=== PATIENT | male | born 1985 | race Caucasian/White ===

== ENCOUNTER 2016-04-28 15:16 | Emergency (ER) | payer SELFPAY ==
[2016-04-28 15:33] VITALS: BP 134/67; PULSE 80; RESP 16; TEMP 97.9
--- NOTE | 2016-04-28 16:00 | ED ---
ENT HPI - General Chief complaint: Dental/Oral Stated complaint: Dental Time Seen by Provider: 04/28/16 15:34 Source: patient, RN notes reviewed Mode of arrival: ambulatory Limitations: no limitations - History of Present Illness Initial comments: 30-year-old male presents emergency Department chief complaint right lower dental pain. Patient states that was sore yesterday woke up with swelling today. Patient called his dentist who advised him come emergency department to be started on medications. Patient states she's had no fevers no chills no trismus. Denies any sore throat. Patient states he has multiple bad teeth. - Related Data Home Medications Medication Instructions Recorded Confirmed Acetaminophen Tab [Tylenol Tab] 975 mg PO Q6H PRN 04/28/16 04/28/16 Ibuprofen [Motrin] 400 mg PO Q6HR PRN 04/28/16 04/28/16 diphenhydrAMINE HCL [Benadryl] 25 mg PO Q4H PRN 04/28/16 04/28/16 Previous Rx's Medication Instructions Recorded Acetaminophen-Codeine 300-30mg 1 tab PO Q4H PRN #20 tablet 04/28/16 [Tylenol #3] Clindamycin HCl 300 mg PO Q6HR #40 cap 04/28/16 Allergies Allergy/AdvReac Type Severity Reaction Status Date / Time cephalexin monohydrate Allergy Unknown Verified 04/28/16 15:53 [From Keflex] Childhood Penicillins Allergy Unknown Verified 04/28/16 15:53 Childhood Review of Systems ROS Statement: Those systems with pertinent positive or pertinent negative responses have been documented in the HPI. ROS Other: All systems not noted in ROS Statement are negative. 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 OTHER PAST HX INCLUDES: CHRONIC SEVERE RAMON EAR INFECTIONS History of Any Multi-Drug Resistant Organisms: None Reported Past Surgical History: Adenoidectomy, Tonsillectomy Additional Past Surgical History / Comment(s): MULTIPLE TUBES PLACED IN EARS Past Anesthesia/Blood Transfusion Reactions: No Reported Reaction Past Psychological History: No Psychological Hx Reported Smoking Status: Current every day smoker Past Alcohol Use History: Occasional Additional Past Alcohol Use History / Comment(s): STARTED SMOKING AT AGE 15-16- 1PPD, OCCASSIONAL DRINK LESS THAN 14 PER WEEK. Past Drug Use History: None Reported Additional Drug Use History / Comment(s): HAS MEDICAL MARIJUANA CARD BUT DOES' NT SMOKE VERY OFTEN. - Past Family History Father Family Medical History: No Reported History Additional Family Medical History / Comment(s): HEALTHY Mother Family Medical History: No Reported History Additional Family Medical History / Comment(s): HEALTHY General Exam Limitations: no limitations General appearance: alert, in no apparent distress Head exam: Present: atraumatic, normocephalic, normal inspection Eye exam: Present: normal appearance, PERRL, EOMI. Absent: scleral icterus, conjunctival injection, periorbital swelling ENT exam: Present: mucous membranes moist, TM's normal bilaterally. Absent: normal exam, normal oropharynx (Edentulous, no drainable abscess multiple eroded teeth right lower) Neck exam: Present: normal inspection, full ROM. Absent: tenderness, meningismus, lymphadenopathy Respiratory exam: Present: normal lung sounds bilaterally. Absent: respiratory distress, wheezes, rales, rhonchi, stridor Cardiovascular Exam: Present: regular rate, normal rhythm, normal heart sounds. Absent: systolic murmur, diastolic murmur, rubs, gallop, clicks Neurological exam: Present: alert, oriented X3, CN II-XII intact, reflexes normal. Absent: motor sensory deficit Skin exam: Present: warm, dry, intact, normal color. Absent: rash Course Vital Signs 04/28/16 15:29 Temperature 97.9 F Pulse Rate 80 Respiratory 16 Rate Blood Pressure 134/67 O2 Sat by Pulse 100 Oximetry Medical Decision Making - Medical Decision Making 30-year-old male presented for right sided facial pain, dental pain. Patient has a dental infection. Patient was started on clindamycin and follow-up with dentist return parameters discussed. Disposition Clinical Impression: Dental caries, Toothache Disposition: HOME SELF-CARE Condition: Stable Instructions: Dental Abscess (ED) Additional Instructions: Please return to the Emergency Department if symptoms worsen or any other concerns. Prescriptions: Acetaminophen-Codeine 300-30mg [Tylenol #3] 1 tab PO Q4H PRN #20 tablet PRN Reason: pain Clindamycin HCl 300 mg PO Q6HR #40 cap Time of Disposition: 15:59
== END 2016-04-28 16:17 | disposition home or self-care (01) ==
LOC: EC 15:16
DX: K02.9 Dental caries, unspecified (principal); F17.200 Nicotine dependence, unspecified, uncomplicated; Z88.0 Allergy status to penicillin; Z88.1 Allergy status to other antibiotic agents
CPT/HCPCS: 99282

== ENCOUNTER 2017-09-26 23:24 | Emergency (ER) | payer OTHER ==
[2017-09-26 23:29] VITALS: BP 135/93; PULSE 70; RESP 18; TEMP 98.4
[2017-09-26] MEDS ORDERED: CLINDAMYCIN 150 MG CAP PO STA (23:46)
[2017-09-26] MEDS ORDERED: HYDROcodone/APAP 5-325MG 1 EACH TAB PO STA (23:46)
--- NOTE | 2017-09-26 23:50 | ED ---
General Adult HPI - General Chief complaint: Dental/Oral Stated complaint: dental pain Time Seen by Provider: 09/26/17 23:43 Source: patient, RN notes reviewed Mode of arrival: ambulatory Limitations: no limitations - History of Present Illness Initial comments: Patient 31-year-old male presented to the emergency room today with a complaint of increased dental pain. Patient does admit to pain that started last night to the left upper side. He is to history of back teeth. He states every so often he has to have formed pulled due to pain. Patient states pain started last night in tooth #14. He denies any drainage or discharge from the area. States did not get any sleep last night and ezra came here to the emergency room to see if he gets something for pain control to sleep. Patient denies any other complaints or symptoms. Patient denies any recent fever, chills, shortness of breath, chest pain, back pain, abdominal pain, nausea or vomiting, numbness or tingling, headaches or visual changes, or any other complaints. - Related Data Home Medications Medication Instructions Recorded Confirmed Acetaminophen Tab [Tylenol Tab] 975 mg PO Q6H PRN 04/28/16 04/28/16 Ibuprofen [Motrin] 400 mg PO Q6HR PRN 04/28/16 04/28/16 diphenhydrAMINE HCL [Benadryl] 25 mg PO Q4H PRN 04/28/16 04/28/16 Previous Rx's Medication Instructions Recorded Acetaminophen-Codeine 300-30mg 1 tab PO Q4H PRN #20 tablet 04/28/16 [Tylenol #3] Clindamycin HCl 300 mg PO Q6HR #40 cap 04/28/16 Clindamycin HCl 300 mg PO Q6H #40 cap 09/26/17 Allergies Allergy/AdvReac Type Severity Reaction Status Date / Time cephalexin monohydrate Allergy Unknown Verified 09/26/17 23:30 [From Keflex] Childhood Penicillins Allergy Unknown Verified 09/26/17 23:30 Childhood Review of Systems ROS Statement: Those systems with pertinent positive or pertinent negative responses have been documented in the HPI. ROS Other: All systems not noted in ROS Statement are negative. 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 OTHER PAST HX INCLUDES: CHRONIC SEVERE RAMON EAR INFECTIONS, History of Any Multi-Drug Resistant Organisms: None Reported Past Surgical History: Adenoidectomy, Tonsillectomy Additional Past Surgical History / Comment(s): MULTIPLE TUBES PLACED IN EARS, Past Anesthesia/Blood Transfusion Reactions: No Reported Reaction Past Psychological History: No Psychological Hx Reported Smoking Status: Current every day smoker Past Alcohol Use History: Occasional Past Drug Use History: None Reported - Past Family History Father Family Medical History: No Reported History Additional Family Medical History / Comment(s): HEALTHY Mother Family Medical History: No Reported History Additional Family Medical History / Comment(s): HEALTHY General Exam - General Exam Comments Initial Comments: General: The patient is awake and alert, in no distress, and does not appear acutely ill. Eye: extra-ocular movements are intact. No nystagmus. There is normal conjunctiva bilaterally. No signs of icterus. Ears, nose, mouth and throat: There are moist mucous membranes and no oral lesions. Tender to palpation over tooth #14. No abscess. Uvula midline. Patient's also evidently Neck: The neck is supple, there is no tenderness or JVD. Musculoskeletal: Normal ROM, no tenderness. Strength 5/5. Sensation intact. Neurological: A&O x 3. CN II-XII intact, There are no obvious motor or sensory deficits. Coordination appears grossly intact. Speech is normal. Skin: Skin is warm and dry and no rashes or lesions are noted. Psychiatric: Cooperative, appropriate mood & affect, normal judgment. Limitations: no limitations Course Vital Signs 09/26/17 23:27 Temperature 98.4 F Pulse Rate 70 Respiratory 18 Rate Blood Pressure 135/93 O2 Sat by Pulse 99 Oximetry Medical Decision Making - Medical Decision Making Patient given dose of clindamycin and [place] here the emergency room. Will be discharged home on antibiotics advised follow-up dentist. Advised return for any other concerns. Disposition Clinical Impression: Pain, dental Disposition: HOME SELF-CARE Condition: Good Instructions: Toothache (ED) Additional Instructions: Please use medication as discussed. Please follow-up with dentist over the next 2 days. Please return to emergency room if the symptoms increase or worsen or for any other concerns. Prescriptions: Clindamycin HCl 300 mg PO Q6H #40 cap Is patient prescribed a controlled substance at d/c from ED?: No Referrals: None,Stated [Primary Care Provider] - 1-2 days Time of Disposition: 23:49
== END 2017-09-27 00:08 | disposition home or self-care (01) ==
LOC: EC 23:24
DX: K08.89 Other specified disorders of teeth and supporting structures (principal); F17.200 Nicotine dependence, unspecified, uncomplicated; Z88.0 Allergy status to penicillin; Z88.1 Allergy status to other antibiotic agents
CPT/HCPCS: 99282